=== PATIENT | female | born 1945 | race Caucasian/White ===

== ENCOUNTER → 2021-02-26 12:22 | Outpatient (CLI) | payer MEDICARE, OTHER, SELFPAY ==
--- NOTE | 2021-02-26 | DI.US.S_ITS ---
PROCEDURE: US ABDOMEN COMPLETE INDICATIONS: EPIGASTRIC PAIN TECHNIQUE: Real-time scanning was performed of the abdominal and retroperitoneal organs, with image documentation. COMPARISON: None. FINDINGS: Liver: Hepatic echogenicity is increased consistent with hepatic steatosis. Gallbladder: The gallbladder wall is normal. The gallbladder is distended with no stones. No pericholecystic fluid. Biliary ducts: The common bile duct is dilated measuring fraga 0.3 mm. Pancreas: Visualized portions of the pancreas are sonographically normal. The pancreatic head is not well seen due to overlying bowel gas. Spleen: Spleen is normal in size and homogeneous in echotexture. Kidneys: Kidneys are normal in size and echotexture. Right kidney measures 10.1 cm long; left kidney measures 10.5 cm long. No hydronephrosis or nephrolithiasis. No solid masses. Aorta: Visualized aorta is normal in caliber at less than 3 cm. Iliacs: Proximal common iliac arteries are normal in caliber at less than 2.5 cm. IVC: Intrahepatic inferior vena cava is patent. Miscellaneous: No free abdominal fluid. IMPRESSION: 1. Hepatic echogenicity is increased consistent with hepatic steatosis. 2. No acute ultrasound abnormality. Dictated by: Alex Ayers M.D. on 02/26/2021 at 15:35 Approved by: Alex Ayers M.D. on 02/26/2021 at 15:39
--- NOTE | 2021-02-26 | DI.ECHO.S_ITS ---
[facility] +---------+ : : [address] : : [address] : : : : [place], : : : : [place] [id number] : : : : Phone: [phone] [id number] Echocardiogram Report + + :Name: MIGUEL TRUONG EStudy Date: 02/26/2021 Height: 59 in : :[facility] ReadingLocation: Weight: 120 lb : : Gender: Female BSA: 1.5 m2 : :: 1945 Age: 75 yrs BP: 132/86 mmHg: :Reason For Study: Chest pain : :Ordering Physician: FANY, : :LILY Finley Performed By: Brant Santos : :Referring: LILY SOARES : + + Interpretation Summary The left ventricle is normal in size and wall thickness. Left ventricular systolic function is normal. The ejection fraction is estimated to be 60-65%. There are no focal wall motion abnormalities. Diastolic parameters suggest probable normal left ventricular diastolic function and normal filling pressures. The right ventricle is borderline dilated. The right ventricular systolic function is normal. The right ventricular systolic pressure is estimated to be at least 39 mmHg based on an estimated right atrial pressure of 3 mm Hg. The left atrium is moderately dilated. The right atrium is mildly dilated. There is mild aortic regurgitation. There is no other significant valvular heart disease. The aortic root is normal size. Procedure: A two-dimensional transthoracic echocardiogram with color flow and Doppler was performed. The study quality was technically adequate. There is no prior echocardiogram noted for this patient. Left Ventricle: The left ventricle is normal in size and wall thickness. Left ventricular systolic function is normal. The ejection fraction is estimated to be 60-65%. There are no focal wall motion abnormalities. Diastolic parameters suggest probable normal left ventricular diastolic function and normal filling pressures. Right Ventricle: The right ventricle is borderline dilated. The right ventricular systolic function is normal. Atria: The left atrium is moderately dilated. The right atrium is mildly dilated. There is no Doppler evidence for an interatrial shunt. Mitral Valve: The mitral valve is normal in structure and function. There is trace mitral regurgitation. Aortic Valve: The aortic valve is normal in structure and function. There is mild aortic regurgitation. Tricuspid Valve: The tricuspid valve is normal in structure and function. There is mild tricuspid regurgitation. The right ventricular systolic pressure is estimated to be at least 39 mmHg based on an estimated right atrial pressure of 3 mm Hg. Pulmonic Valve: The pulmonic valve is normal in structure and function. There is mild pulmonic regurgitation. There is no other significant valvular heart disease. Great Vessels: The aortic root is normal size. The dimensions of the ascending aorta are normal. The IVC is of normal diameter and collapses greater than 50% with a sniff. This suggests a low right atrial pressure of 3 mm Hg. Pericardium/ Pleura There is no pericardial effusion. There is no pleural effusion. MMode/2D Measurements & Calculations LVIDd: 4.4 cm LVOT diam: 2.0 cm LVIDs: 2.8 cm Ao root diam: 3.3 cm IVSd: 0.96 cm asc Aorta Diam: 2.8 cm LVPWd: 0.89 cm LV quiroz. diameter/BSA (cm/m^2): 3.0 LV sys. diameter/BSA (cm/m^2): 1.9 FS: 35.5 % LA A2 area: 20.6 cm2 RA long axis: 6.3 cm LA A4 area: 23.0 cm2 RA area: 20.9 cm2 LA length (vol): 6.4 cm RA vol: 58.9 ml LA vol: 62.7 ml RA : 39.7 ml/m2 LA vol index: 42.3 ml/m2 RVD1 (basal): 3.0 cm IVC diam: 1.7 cm TAPSE: 2.1 cm Doppler Measurements & Calculations Ao V2 max: 121.7 cm/sec LVOT Max Nemesio: 77.5 cm/sec Ao V2 mean: 85.1 cm/sec LV V1 max P.4 mmHg Ao V2 VTI: 25.3 cm LV V1 VTI: 18.4 cm Ao max P.9 mmHg Ao mean P.1 mmHg GERALDO(I,D): 2.2 cm2 AI P1/2t: 692.7 msec GERALDO(V,D): 1.9 cm2 AI dec slope: 210.9 cm/sec2 GERALDO indexed to BSA (cm^2/m^2): 1.5 sev ratio: 0.73 MV E max nemesio: 45.1 cm/sec MV dec time: 0.25 sec MV A max nemesio: 44.2 cm/sec MV E/A: 1.0 Med Peak E' Nemesio: 7.5 cm/sec E/E' med: 6.0 Lat Peak E' Nemesio: 8.9 cm/sec E/E' lat: 5.1 E/e' average: 5.5 TR max nemesio: 299.6 cm/sec SV(LVOT): 55.5 ml TR max P.9 mmHg Reading Physician:06:33 PM
== END ==
PROVIDERS: Family Provider Family Medicine; PCP Family Medicine; Referring Provider Family Medicine; Visit Provider Family Medicine
DX: R10.13 Epigastric pain (principal); R07.9 Chest pain, unspecified; I35.1 Nonrheumatic aortic (valve) insufficiency
CPT/HCPCS: 76700; 93306